=== PATIENT | male | born 1970 | race Caucasian/White ===

== ENCOUNTER 2017-09-07 01:09 | Emergency (ER) | payer SELFPAY ==
[~2017-09-07] VITALS: Ht 172.7 cm; Wt 79.4 kg
[2017-09-07] MEDS ORDERED: Tetanus/Diptheria/Pertussis Vaccine 0.5ml Syr IM ONE (01:45)
[2017-09-07] MEDS ORDERED: IBUPROFEN600 MG ORAL (01:53)
[2017-09-07] MEDS ORDERED: CEPHALEXIN500 MG ORAL (01:53)
--- NOTE | 2017-09-07 01:54 | Emergency Room Report ---
History of Present Illness General Chief Complaint: Lower Extremity Injury Source: Patient Present Illness HPI This is a 47-year-old male with history of high blood pressure. He presents with chief complaint of laceration to the toe. 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 He got up to let him go out. On the way out he actually kicked a past cabinet. He sustained laceration to the fourth toe on his left foot. Some bleeding. Pain is mild. No other injury. Did not pass out. Allergies: Coded Allergies: No Known Allergies (Unverified , 09/07/17) Patient History Past Medical History: see triage record, old chart reviewed, HTN Past Surgical History: other Pertinent Family History: none Social History: Denies: smoking Immunizations: other Reviewed Nursing Documentation: PMH: Agreed; PSxH: Agreed Nursing Documentation-PMH Hx Hypertension: Yes Review of Systems Eye: Denies: eye pain, blurred vision ENT: Denies: ear pain, nose congestion, throat swelling Respiratory: Denies: cough, shortness of breath Cardiovascular: Denies: chest pain, palpitations Gastrointestinal: Denies: abdominal pain, diarrhea, nausea, vomiting Musculoskeletal: Denies: back pain, joint pain Skin: Denies: rash Neurological: Denies: headache, numbness Endocrine: Denies: increased thirst, increased urine Hematologic/Lymphatic: Denies: easy bruising All Other Systems: negative except mentioned in HPI Physical Exam Vital Signs Date Time Temp Pulse Resp B/P (MAP) Pulse Ox O2 Delivery O2 Flow Rate FiO2 09/07/17 01:11 98.1 73 18 117/75 98 Room Air 98.1 vitals unremarkable Sp02 EP Interpretation: reviewed, normal General Appearance: well appearing, no apparent distress, alert Head: normocephalic, atraumatic Eyes: bilateral eye PERRL, bilateral eye EOMI ENT: hearing grossly normal, normal pharynx Neck: full range of motion, supple, no meningismus Respiratory: chest non-tender, lungs clear, normal breath sounds Cardiovascular #1: regular rate, rhythm, no murmur Gastrointestinal: normal bowel sounds, non tender, no mass, no organomegaly, no bruit, non-distended Musculoskeletal: back normal, gait/station normal, normal range of motion, other - Left foot: There is a 3 cm flap laceration to the fourth toe. No deformity. Sensation normal. Neurologic: alert, oriented x3 Psychiatric: mood/affect normal Skin: warm/dry Procedures Laceration/Wound Repair Laceration/Wound Repair : Consent: Verbal Wound's Depth, Shape: irregular, flap Wound Length (cm): 3 Wound Explored: clean Irrigated w/ Saline (ccs): 1000 Betadine Prep?: No Anesthesia: 1% Lidocaine Volume Anesthetic (ccs): 2 Wound Debrided: minimal Wound Repaired With: sutures Suture Size/Type: 5:0, proline Number of Sutures: 9 Patient Tolerated: Well Complications: None Progress Digital block with 1% lidocaine without epinephrine. I place a total of 9 interrupted 5-0 Prolene suture. No complication. Patient tolerated procedure without a problem. Medical Decision Making Diagnostic Impression: Primary Impression: Laceration of toe of left foot Qualified Codes: S91.119A - Laceration without foreign body of unspecified toe without damage to nail, initial encounter ER Course Patient with laceration to the left toe. Increased risk for infection because of area. No evidence of tendon laceration or foreign body. There is increased risk for infection because only about 10-15% of the flap is attached. We'll discharge home. I see no need for x-ray Last Vital Signs Date Time Temp Pulse Resp B/P (MAP) Pulse Ox O2 Delivery O2 Flow Rate FiO2 09/07/17 01:11 98.1 73 18 117/75 98 Room Air 98.1 Status: improved Disposition: HOME, SELF-CARE Condition: Stable Scripts Cephalexin* (KEFLEX*) 500 Mg Capsule 500 MG ORAL TID, #21 CAP Prov: JANKI AMARAL M.D. 09/07/17 Ibuprofen* (MOTRIN*) 600 Mg Tablet 600 MG ORAL THREE TIMES A DAY, #30 TAB 0 Refills Prov: JANKI AMARAL M.D. 09/07/17 Additional Instructions: Keep wound clean. Apply antibiotic ointment to area. Suture out in 7-10 days. Follow-up with your for this. Return if worse. JANKI AMARAL M.D. Sep 07, 2017 01:54
[2017-09-07] MEDS ORDERED: Bacitracin Oint UD TOPIC ONE (02:15)
[2017-09-07 02:42] VITALS: BP 120/68
== END 2017-09-07 02:46 | disposition home or self-care (01) ==
LOC: EMR 02:05
DX: S91.115A Laceration without foreign body of left lesser toe(s) without damage to nail, initial encounter (principal); W22.8XXA Striking against or struck by other objects, initial encounter; Y92.009 Unspecified place in unspecified non-institutional (private) residence as the place of occurrence of the external cause; Z23 Encounter for immunization; I10 Essential (primary) hypertension
CPT/HCPCS: 90471; 90715; 99284